=== PATIENT | female | born 1935 | race Two or more races ===

== ENCOUNTER 2022-05-27 12:15 | Emergency (ER) | payer MEDICARE ==
[~2022-05-27] VITALS: Ht 157.5 cm; Wt 65.8 kg
--- NOTE | 2022-05-27 12:30 | NUR ---
BIBra 38 from home, c/o epistaxis, facial injury s/p tripped and fall. On room air, breathing evenly and unlabored. Kept comfortable, will continue to monitor accordingly.
[2022-05-27] MEDS ORDERED: HYDROCODONE/APAP 5/325MG TABLET ONE (13:37)
[2022-05-27] MEDS ORDERED: TDAP [DIPH/PERTUSSIS/TET] 0.5 ML VIAL IM ONE (13:37)
[2022-05-27] MEDS ORDERED: ACETAMINOPHEN ES 500 MG TABLET ONE (13:43)
[2022-05-27] MEDS: TDAP [DIPH/PERTUSSIS/TET] 0.5 ML VIAL IM ONE (13:45)
[2022-05-27] MEDS: HYDROCODONE/APAP 5/325MG TABLET PO ONE (13:49)
[2022-05-27] MEDS: ACETAMINOPHEN ES 500 MG TABLET PO ONE (13:51)
--- NOTE | 2022-05-27 14:21 | NUR ---
patient came back from ct
[2022-05-27] MEDS ORDERED: ACET325T53 PO (15:43)
[2022-05-27 15:59] VITALS: BP 129/73
--- NOTE | 2022-05-27 16:00 | NUR ---
FAMILY AT BEDSIDE; SIGNED DC INSTRUCTIONS ON BEHALF OF PT.
[2022-05-27] MEDS ORDERED: OXYMETAZOLINE HCL NASAL SPRAY 30 ML BOTTLE NS ONE (16:57)
[2022-05-27] MEDS: OXYMETAZOLINE HCL NASAL SPRAY 30 ML BOTTLE NS ONE (17:00)
--- NOTE | 2022-05-27 18:54 | NUR ---
PT STILL NOTED W/ BLEEDING FROM THE NASAL AREA AND SPITTING OUT CLOTS. INJURY RE-EVALUATED BY DR. NAIR. RHINO ROCKET APPLIED BY . CURRENTLY UNDER OBSERVATION FOR CHANGES.
--- NOTE | 2022-05-27 19:05 | NUR ---
[facility] PAGED.
--- NOTE | 2022-05-27 19:09 | NUR ---
covid antigen swab done and sent to the lab
[2022-05-27] MEDS ORDERED: ONDANSETRON HCL/PF 4 MG/2 ML VIAL IVP PRN (19:30)
[2022-05-27] MEDS ORDERED: ACETAMINOPHEN 325 MG TABLET PO PRN (19:30)
[2022-05-27] MEDS ORDERED: Z GUARD REMEDY 4 OZ OINT TP PRN (19:30)
[2022-05-27] MEDS ORDERED: HYDROCODONE/APAP 10/325MG TABLET PO PRN (19:30)
[2022-05-27] MEDS ORDERED: MAGNESIUM HYDROXIDE 30 ML UDC PO PRN (19:30)
[2022-05-27] MEDS ORDERED: MAG HYDROX/AL HYDROX/SIMETH 30 ML UDC PO PRN (19:30)
[2022-05-27] MEDS ORDERED: IV NS 0.9% 1,000 ML IV PRN (19:30)
--- NOTE | 2022-05-27 19:36 | NUR ---
REPORT GIVEN TO NURSE JOSEPH FOR JOSE
[2022-05-27] MEDS ORDERED: ACETAMINOPHEN 325 MG TABLET ONE (19:56)
--- NOTE | 2022-05-27 20:21 | NUR ---
Patient does not wish to proceed with medical care recommended . Patient given information related to possible complications, up to and including , which could occur as a result of leaving the hospital at this time. Patient verbalizes understanding of risks involved due to leaving against medical advice. Patient has signed AMA form.
--- NOTE | 2022-05-27 20:25 | NUR ---
IV removed. Catheter intact and site benign. Pressure and 4x4 applied to site. No bleeding noted.
== END 2022-05-27 20:25 | disposition left against medical advice (07) ==
LOC: ER 13:29
DX: S02.2XXA Fracture of nasal bones, initial encounter for closed fracture (principal); W18.09XA Striking against other object with subsequent fall, initial encounter; Y92.038 Other place in apartment as the place of occurrence of the external cause; S09.93XA Unspecified injury of face, initial encounter; R04.0 Epistaxis; Z20.822 Contact with and (suspected) exposure to COVID-19
CPT/HCPCS: 99285; 72125; 30905; 87426; 90471; 90715; 73140; 70450; 70486; A6403; C9803

== ENCOUNTER 2022-05-29 20:54 | Emergency (ER) | payer MEDICARE ==
[~2022-05-29] VITALS: Ht 160 cm; Wt 63.5 kg
[~2022-05-29 20:54] MED LIST: ACET325T53 PO
[2022-05-29 21:14] VITALS: BP 148/68
[2022-05-29] MEDS ORDERED: METOCLOPRAMIDE HCL 10 MG/2 ML VIAL IV ONE (22:00)
[2022-05-29] MEDS ORDERED: diphenhydrAMINE HCL 50 MG/ML VIAL IV ONE (22:00)
[2022-05-29] MEDS ORDERED: MORPHINE SULFATE INJ 2 MG/ML DISP.SYRIN IV ONE (22:00)
[2022-05-29] MEDS ORDERED: diphenhydrAMINE HCL 50 MG/ML VIAL ONE (22:15)
[2022-05-29] MEDS ORDERED: MORPHINE SULFATE INJ 2 MG/ML DISP.SYRIN ONE (22:15)
[2022-05-29] MEDS ORDERED: METOCLOPRAMIDE HCL 10 MG/2 ML VIAL ONE (22:15)
[2022-05-29] MEDS ORDERED: AMOX-430 PO (22:49)
--- NOTE | 2022-05-29 23:24 | NUR ---
Patient discharged to home in stable condition. Written and verbal after care instructions given. Patient verbalizes understanding of instruction.
--- NOTE | 2022-05-29 23:24 | NUR ---
Patient discharged to home in stable condition. Written and verbal after care instructions given. Patient verbalizes understanding of instruction. Pt ambulatory with a steady gait
== END 2022-05-29 23:25 | disposition home or self-care (01) ==
LOC: ER 21:00
DX: S02.2XXA Fracture of nasal bones, initial encounter for closed fracture (principal); W19.XXXA Unspecified fall, initial encounter; Y93.89 Activity, other specified; Y92.89 Other specified places as the place of occurrence of the external cause; Y99.8 Other external cause status
CPT/HCPCS: J1200; J2270; J2765

== ENCOUNTER 2022-05-30 14:42 | Emergency (ER) | payer MEDICARE ==
[~2022-05-30] VITALS: Ht 154.9 cm; Wt 65.8 kg
[~2022-05-30 14:42] MED LIST changes: +AMOX-430 PO
[2022-05-30 14:50] VITALS: BP 105/43
--- NOTE | 2022-05-30 14:52 | NUR ---
BIBDAUGHTER FOR REMOVAL OF RHINO ROCKET WHICH WAS PLACED 3 DAYS AGO. DENIES HAVING BLEEDING. DENIES PAIN. IN ROOM AIR AND DENIES SOB. RESPIRATION REGULAR AND UNLABORED. WILL CONTINUE TO MONITOR THE PATIENT.
[2022-05-30] MEDS ORDERED: OXYMETAZOLINE HCL NASAL SPRAY 30 ML BOTTLE NS ONE (15:21)
== END 2022-05-30 16:17 | disposition home or self-care (01) ==
LOC: ER 14:51
DX: S02.2XXD Fracture of nasal bones, subsequent encounter for fracture with routine healing (principal); X58.XXXD Exposure to other specified factors, subsequent encounter